=== PATIENT | female | born 1975 | race Caucasian/White ===

== ENCOUNTER 2016-12-12 08:02 | Emergency (ER) | payer SELFPAY ==
[~2016-12-12] VITALS: Ht 157.4 cm; Wt 59.0 kg
[~2016-12-12 08:02] MED LIST: ANAPROX DS550 MG PO; ZANTAC150 MG PO
[2016-12-12] MEDS ORDERED: PREDNISONE50 MG PO (09:07)
== END 2016-12-12 10:08 | disposition home or self-care (01) ==
LOC: ED 08:02
DX: S46.911A Strain of unspecified muscle, fascia and tendon at shoulder and upper arm level, right arm, initial encounter (principal); F17.200 Nicotine dependence, unspecified, uncomplicated; X50.9XXA Other and unspecified overexertion or strenuous movements or postures, initial encounter; Y93.89 Activity, other specified; Y92.9 Unspecified place or not applicable; Y99.9 Unspecified external cause status